=== PATIENT | male | born 1995 | race Caucasian/White ===

== ENCOUNTER 2017-02-20 02:15 | Emergency (ER) | payer OTHER ==
--- NOTE | 2017-02-20 02:48 | EDPHY ---
H & P Stated Complaint: testicular pain Time Seen by Provider: 02/20/17 02:38 HPI/ROS: Chief Complaint: Testicular pain HPI: 21-year-old male has been having some dull testicular pain which has been constant for the last 2 days. He has not had any swelling. Has a history of the same and had an ultrasound a year ago which was negative. Does not have a history of sexually transmitted diseases. Pain at worst is a 2 on 10. Does report he had difficulty getting an erection earlier today. No fevers or chills. No redness or swelling. No nausea or vomiting. ROS: 10 point Review of Systems is negative except as noted in the HPI. PMH: Denies Social History: Occasional alcohol, occasional marijuana Family History: non-contributory Physical Exam: Gen: Awake, Alert, No Distress HEENT: Nose: no rhinorrhea Eyes: PERRLA, EOMI Mouth: Moist mucosa Neck: Supple, no JVD Abd: Soft, non-tender, no guarding Genital: Patient has normal cremasteric. No testicular tenderness or swelling. No epididymal tenderness or swelling. There is no scrotal tenderness , swelling or erythema. There are no indirect inguinal hernias. No inguinal lymphadenopathy. Normal circumcised penis without rash or lesions. Ext: no edema, non-tender Skin: no rash Neuro: CN II-XII intact, Sensation grossly intact, Strength 5/5 in bilateral upper and lower extremities - Personal History Current Tetanus/Diphtheria Vaccine: Yes Current Tetanus Diphtheria and Acellular Pertussis (TDAP): Yes - Medical/Surgical History Hx Asthma: No Hx Chronic Respiratory Disease: No Hx Diabetes: No Hx Cardiac Disease: No Hx Renal Disease: No Hx Cirrhosis: No Hx Alcoholism: No Hx HIV/AIDS: No Hx Splenectomy or Spleen Trauma: No - Social History Smoking Status: Never smoked Constitutional: Initial Vital Signs Temperature (C) 37.4 C 02/20/17 02:27 Heart Rate 114 H 02/20/17 02:27 Respiratory Rate 16 02/20/17 02:27 Blood Pressure 141/84 H 02/20/17 02:27 O2 Sat (%) 95 02/20/17 02:27 O2 Delivery Mode Room Air Allergies/Adverse Reactions: No Known Allergies Allergy (Unverified 02/20/17 02:29) Medical Decision Making ED Course/Re-evaluation: 21-year-old male with very mild bilateral testicular discomfort. There are no findings to suggest torsion, orchitis, epididymitis, inguinal hernia, or STI at this time. Urinalysis is negative for infection. GC chlamydia have been ordered. He has not have any symptomatology suggestive of an STI. Will discharge with follow up with [facility]. - Data Points Laboratory Results: 02/20/17 02/20/17 02:58 02:58 Urine Color YELLOW Urine Appearance CLEAR Urine pH 6.0 (5.0-7.5) Ur Specific [place] 1.011 (1.002-1.030) Urine Protein 2+ H (NEGATIVE) Urine Ketones NEGATIVE (NEGATIVE) Urine Blood NEGATIVE (NEGATIVE) Urine Nitrate NEGATIVE (NEGATIVE) Urine Bilirubin NEGATIVE (NEGATIVE) Urine Urobilinogen NEGATIVE EU EU (0.2-1.0) Ur Leukocyte Esterase NEGATIVE (NEGATIVE) Urine RBC 1-3 /hpf /hpf (0-3) Urine WBC 1-3 /hpf /hpf (0-3) Ur Epithelial Cells NONE SEEN /lpf /lpf (NONE-1+) Urine Mucus TRACE /lpf /lpf (NONE-1+) Urine Glucose NEGATIVE (NEGATIVE) C.trachomatis RNA (TMA) Pending N.gonorrhoeae RNA (TMA) Pending Departure - Departure Disposition: Home, Routine, Self-Care Clinical Impression: Testicular/scrotal pain Condition: Good Instructions: Testicle Pain (ED) Additional Instructions: Follow up at [facility] in 2-3 days if symptoms are not improving. We have ordered sexually transmitted infection tests. You can call the hospital later today for those results. Return emergency depart for increasing sudden onset of severe pain, redness, fevers, chills, or any other concerns. Referrals: MUKUL CARCAMO ,. [Clinic] - As per Instructions
[2017-02-20 03:25] LABS: COLOR YELLOW; LEUKOCYTE ESTERASE,URINE NEGATIVE (NEGATIVE); NITRITE,URINE NEGATIVE (NEGATIVE)
[2017-02-20 03:35] LABS: MUCUS TRACE /lpf (NONE-1+)
[2017-02-20 04:06] VITALS: BP 127/72; PULSE 103; RESP 15; TEMP 98.2; O2SAT 93
[2017-02-22 13:30] LABS: CHLAMYDIA AMPLIFICATION GENPRB NEGATIVE (NEGATIVE)
== END 2017-02-20 04:03 | disposition home or self-care (01) ==
DX: N50.819 Testicular pain, unspecified (principal); N50.82 Scrotal pain